=== PATIENT | male | born 1980 | race Caucasian/White ===

== ENCOUNTER 2017-01-09 16:14 | Emergency (ER) | payer BC, MEDICAID ==
[~2017-01-09] VITALS: Ht 180.3 cm; Wt 100.0 kg
[~2017-01-09 16:14] MED LIST: AMOX875 PO; PRED20 PO
[2017-01-09 16:16] VITALS: BP 123/79; PULSE 81; RESP 15; TEMP 98; O2SAT 98
--- NOTE | 2017-01-09 17:11 | PD ---
Physical Exam Time Seen by Provider: 17:11 Narrative 36 y/o male here with dyspnea for the past few days- he feels that he cannot get a full breath. he has had some pain behind the scapula, worse with inspiration. Vital signs reviewed. Seen at triage desk. Awaiting bed placement. Data Data Last Documented VS Vital Signs Date Time Temp Pulse Resp B/P Pulse Ox O2 Delivery O2 Flow Rate FiO2 01/09/17 16:16 98.0 81 15 123/79 98 MDM Medical Record Reviewed: Yes Supervised Visit with IAN: Beau Moss Jan 09, 2017 17:11
--- NOTE | 2017-01-09 18:01 | RADRPT ---
EXAM DATE/TIME: 01/09/2017 17:48 [facility] COMPARISON: CHEST SINGLE AP, April 21, 2013, 21:08. INDICATIONS : Right chest pain when taking deep breath. MEDICAL HISTORY : None. SURGICAL HISTORY : None. ENCOUNTER: Initial ACUITY: 3 days PAIN SCORE: 8/10 LOCATION: Right chest FINDINGS: There is mild infiltrate in the right middle and lower lobes. Left lung is clear. No pleural effusion is identified. The cardiomediastinal contours are satisfactory. Thoracic skeleton is intact. CONCLUSION: Mild right base infiltrate. Adrien Wall MD on January 09, 2017 at 17:59 Board Certified Radiologist. This report was verified electronically.
--- NOTE | 2017-01-09 18:50 | PD ---
HPI Chief Complaint: Respiratory Symptoms Time Seen by Provider: 18:45 Travel History International Travel<30 days: No Contact w/Intl Traveler<30days: No Traveled to known affect area: No History of Present Illness HPI 36-year-old male presents to the ED for evaluation of 3 day history of right posterior shoulder pain associated with shortness of breath. The patient also endorses increased coughing which is occasionally productive of "brown stuff." He thinks that this may be related to a recent demolition of a bathroom that had mold. Denies chest pain, palpitations, nausea, vomiting, fever, chills. He endorses smoking half pack a day since age 15. No treatment attempt at home. PFSH Past Medical History Diminished Hearing: No Social History Alcohol Use: Yes (RARELY) Tobacco Use: Yes (1 PPD X 10 YEARS) Substance Use: No Allergies-Medications (Allergen,Severity, Reaction): Coded Allergies: Bees (Verified Allergy, Severe, Anaphylaxis, 01/09/17) Uncoded Allergies: NO NARCOTICS (Allergy, Mild, 04/21/08) Reported Meds & Prescriptions Reported Meds & Active Scripts Active Tessalon Perles (Benzonatate) 100 Mg Cap 200 Mg PO TID PRN Azithromycin 250 Mg Tab 250 Mg PO DIRECTED Take 2 tabs (500 mg) on day 1 then 1 tab daily x 4 days. Review of Systems Except as stated in HPI: all other systems reviewed are Neg Physical Exam Narrative GENERAL: Well-nourished, well-developed patient. SKIN: Focused skin assessment warm/dry. HEAD: Normocephalic. EYES: No scleral icterus. No injection or drainage. NECK: Supple, trachea midline. No JVD or lymphadenopathy. CARDIOVASCULAR: Regular rate and rhythm without murmurs, gallops, or rubs. RESPIRATORY: Breath sounds clear, mildly diminished on the right. No accessory muscle use. GASTROINTESTINAL: Abdomen soft, non-tender, nondistended. Active bowel sounds. MUSCULOSKELETAL: No cyanosis, or edema. BACK: Nontender without obvious deformity. No CVA tenderness. Data Data Last Documented VS Vital Signs Date Time Temp Pulse Resp B/P Pulse Ox O2 Delivery O2 Flow Rate FiO2 01/09/17 18:53 97.8 74 17 125/76 98 Room Air Orders Electrocardiogram (01/09/17 17:13) Chest, Pa & Lat (01/09/17 17:13) [facility] Medical Decision Making Medical Screen Exam Complete: Yes Emergency Medical Condition: Yes Interpretation(s) EKG rate 69, sinus rhythm. First degree AV block. Normal axis. No ST elevations. Reviewed by Dr. Mendoza. Differential Diagnosis Bronchitis versus pneumonia musculoskeletal pain versus other Narrative Course 36-year-old male presents to the ED for evaluation of 3 day history of right posterior shoulder pain associated with shortness of breath. The patient also endorses increased coughing which is occasionally productive of "brown stuff." He thinks that this may be related to a recent demolition of a bathroom that had mold. Current smoker. Patient is afebrile, heart rate 81 on presentation. He is well-appearing with subtle decrease in breath sounds in the right lower lobe. Chest x-ray reveals mild infiltrate in the right base. This is community acquired pneumonia. Patient was prescribed azithromycin 500 mg first day, 250 following 4 days and a short course of Tessalon Perles. He is instructed to stop smoking, take antibiotics as prescribed, return for worsening symptoms. He indicated understanding of the instructions and is agreeable to the care plan. The patient is stable and discharged home. Diagnosis Primary Impression: Community acquired pneumonia Qualified Code: J18.1 - Community acquired pneumonia of right lower lobe of lung Referrals: Primary Care Physician Patient Instructions: Community Acquired Pneumonia (ED), General Instructions, How to Stop Smoking (ED) Additional Instructions: Rest, hydrate. Take antibiotics as prescribed, even if your symptoms resolved. Tessalon Perles as needed to reduce cough symptoms. Follow-up with primary care provider. Return to the ED for worsening symptoms or any urgent or emergent medical condition. Med/Other Pt SpecificInfo: Prescription(s) given Scripts Benzonatate (Tessalon Perles)100 Mg Opi231 Mg PO TID PRN (COUGH) #15 CAP Ref 0 Prov:Crow Mendoza MD 01/09/17 Azithromycin 250 Mg [id number] Mg PO DIRECTED #6 TAB Ref 0 Take 2 tabs (500 mg) on day 1 then 1 tab daily x 4 days. Prov:Crow Mendoza MD 01/09/17 Disposition: 01 DISCHARGE HOME Condition: Stable Stephanie Collier Jan 09, 2017 18:50
[2017-01-09] MEDS ORDERED: AZIT250T3 PO (18:51)
[2017-01-09] MEDS ORDERED: BENZ100 PO (18:51)
[2017-01-09 18:53] VITALS: BP 125/76; PULSE 74; RESP 17; TEMP 97.8; O2SAT 98
[2017-01-09 19:03] VITALS: BP 120/76; TEMP 97.8
--- NOTE | 2017-01-10 08:27 | EKG ---
Date Performed: 01/09/2017 Time Performed: 18:06:31 PTAGE: 36 years EKG: Sinus rhythm WITH FIRST DEGREE AV BLOCK ABNORMAL ECG PREVIOUS TRACING : 04/21/2013 21.33 DOCTOR: Hans Tian Interpretating Date/Time 01/10/2017 08:25:36
== END 2017-01-09 19:04 | disposition home or self-care (01) ==
LOC: NEPD 16:14
DX: J18.1 Lobar pneumonia, unspecified organism (principal); M25.511 Pain in right shoulder; I44.0 Atrioventricular block, first degree; R94.31 Abnormal electrocardiogram [ECG] [EKG]; F17.200 Nicotine dependence, unspecified, uncomplicated
CPT/HCPCS: 71020; 93005; 99284